=== PATIENT | female | born 1960 | race Caucasian/White ===

== ENCOUNTER → 2019-09-14 09:09 | Outpatient (CLI) | payer OTHER, SELFPAY ==
[2019-09-16 05:38] LABS: COVID19 Sendout Not Detected (Not Detected)
== END ==
PROVIDERS: Family Provider Family Medicine; PCP Student in an Organized Health Care Education/Training Program; Visit Provider Family Medicine
DX: R68.89 Other general symptoms and signs (principal)
CPT/HCPCS: 87635

== ENCOUNTER → 2019-09-17 11:02 | Outpatient (CLI) | payer OTHER, SELFPAY | PROVIDERS: Family Provider Family Medicine; PCP Student in an Organized Health Care Education/Training Program; Visit Provider Nurse Practitioner | DX: S61.011A Laceration without foreign body of right thumb without damage to nail, initial encounter (principal) | CPT/HCPCS: 87070; 87077; 87147; 87186; 87205 ==

== ENCOUNTER → 2020-09-17 13:50 | Outpatient (CLI) | payer OTHER, MEDICAID, SELFPAY ==
[2020-09-17] MEDS: COVID-19 VACC #1, MRNA(MOD) 100 MCG/0.5 ML VIAL IM (13:54)
== END ==
PROVIDERS: Family Provider Family Medicine; PCP Student in an Organized Health Care Education/Training Program; Visit Provider Internal Medicine
DX: Z23 Encounter for immunization (principal)
CPT/HCPCS: 0011A; 91301

== ENCOUNTER → 2020-10-15 13:12 | Outpatient (CLI) | payer OTHER, MEDICAID, SELFPAY ==
[2020-10-15] MEDS: COVID-19 VACC #2, MRNA(MOD) 100 MCG/0.5 ML VIAL IM (13:20)
== END ==
PROVIDERS: Family Provider Family Medicine; PCP Student in an Organized Health Care Education/Training Program; Visit Provider Internal Medicine
DX: Z23 Encounter for immunization (principal)
CPT/HCPCS: 0012A; 91301

== ENCOUNTER 2022-12-22 20:24 | Emergency (ER) | payer OTHER, MEDICAID, SELFPAY ==
[2022-12-22 21:07] VITALS: BP 130/76; PULSE 76; RESP 18; TEMP 37; O2SAT 97; BMI 23.8
== END 2022-12-22 22:39 | disposition left against medical advice (07) ==
PROVIDERS: Emergency Provider Emergency Medicine; Family Provider Family Medicine; PCP Student in an Organized Health Care Education/Training Program
CPT/HCPCS: 99281

== ENCOUNTER → 2024-02-02 10:50 | Outpatient (CLI) | payer OTHER, MEDICAID, SELFPAY | PROVIDERS: Family Provider Family Medicine; PCP Student in an Organized Health Care Education/Training Program; Referring Provider Nurse Practitioner Family; Visit Provider Nurse Practitioner Family | DX: R30.0 Dysuria (principal) | CPT/HCPCS: 87077; 87086; 87210 ==

== ENCOUNTER 2024-03-21 23:50 | Emergency (ER) | payer MEDICARE, OTHER, SELFPAY ==
--- NOTE | 2024-03-21 23:57 | ED.PSYCH ---
HPI - Psych General Chief Complaint: Psychiatric Symptoms Stated Complaint: SI Time Seen by Provider: 03/21/24 23:56 History of Present Illness HPI Narrative: 64-year-old female with previous history of suicide attempts presents by law enforcement for suicide attempt. Patient called the suicide hotline stating that she was going to turn the gas on in her house and kill herself. When EMS arrived the patient seemed to be unconscious on the ground, but after knocking on the door she was able to get up and unlock the door. Law enforcement noted a pervasive odor of gas in the house. Patient refused all attempts by paramedics to assess her. Law enforcement told patient that she would need to come to the ER for evaluation. On arrival patient stated that ?I feel fine?. She stated that she no longer wanted to kill herself. She told me that she has a history of this and has had 6-8 attempts to kill herself in the past. After this point patient began insisting she will keep her clothes on and minimally cooperative with ED staff. Related Data Previous Rx's Medication Instructions Recorded phenazopyridine 200 mg tablet 200 mg PO TID 6 doses #6 tabs 02/02/24 (Pyridium) Allergies Allergy/AdvReac Type Severity Reaction Status Date / Time No Known Drug Allergies Allergy Verified 02/02/24 11:02 Patient History Medical History Coronavirus infection, unspecified History of sunburn Shingles (~07/2018) Mumps Chicken pox Herpes Rectal bleeding Anxiety associated with depression (~1979) Surgical History Anesthesia History of varicose vein ligation (~12/2011) Family History Father Diabetes mellitus Mother Breast cancer Brother No problems noted. Grandfather No problems noted. Grandmother Cancer Social History Smoking Status: Current some day smoker Smoking Status: Current some day smoker tobacco type: cigarettes alcohol intake frequency: a few times a week Alcohol type: beer Substance Use Type: marijuana Exam Initial Vital Signs Initial Vital Signs: Vital Signs Temperature 97.8 F 03/22/24 00:05 Pulse Rate 108 H 03/22/24 00:05 Respiratory Rate 19 03/22/24 00:05 Blood Pressure 124/74 03/22/24 00:05 Pulse Oximetry 96 03/22/24 00:05 Oxygen Delivery Method Room Air 03/22/24 00:05 Const: Awake, alert, no acute distress, uncooperative Cardiac: regular rate, regular rhythm RESP: unlabored, speaking in complete sentences without difficulty Skin: Warm, Dry, intact, no rashes Neuro: AO x3, CN II-XII grossly intact, moves all extremities Psych: denying current SI, however recent attempt made, denying homicidal ideations, hallucinations. Poor insight, poor judgement Course Orders Ordered: ED Orders 03/21/24 23:56 Acetaminophen Stat CBC Auto Diff [Complete Blood Count AUTO DIFF] Stat CMP [Comprehensive Metabolic Panel] Stat Ethanol (ETOH) Stat Salicylate Stat TSH [Thyroid Stimulating Hormone] Stat EKG-12 Lead Stat 03/22/24 00:10 UA Complete [Urinalysis and Microscopic] Stat Urine Drug Screen, Rapid Stat 03/22/24 00:20 COVID19 -Nasal RAPID Stat Discontinued Medications Acetaminophen (Acetaminophen 325 Mg Tablet) 325 mg PO NOW ONE Stop: 03/22/24 02:16 Last Admin: 03/22/24 02:18 Dose: 325 mg Documented By: Vital Signs Vital signs: Vital Signs - 8 hr 03/22/24 00:05 03/22/24 05:10 Temperature 97.8 F Pulse Rate 108 H 97 H Respiratory Rate 19 Blood Pressure 124/74 119/62 Pulse Oximetry 96 99 Oxygen Delivery Method Room Air Room Air MDM - Psych Differential Diagnosis Differential diagnosis: Likely acute psychosis, suicidal ideation and depression Lab Data 03/22/24 00:20 03/22/24 00:20 Labs: Lab Results 03/22/24 03/22/24 03/22/24 Range/Units 00:10 00:10 00:20 WBC 4.3 L (4.5-11.0) X10^3/uL RBC 4.38 (4.0-5.2) X10^6/uL Hgb 13.7 (12.0-16.0) g/dL Hct 40.0 (36-46) % MCV 91.4 (80-100) fL MCH 31.2 (26-34) PG MCHC 34.2 (30-36) % RDW 12.9 (11.6-14.8) % Plt Count 284 (150-400) X10^3/uL Neut % (Auto) 47.6 L (50-75) % Lymph % (Auto) 44.0 H (25-40) % [place] % (Auto) 4.9 (3-14) % Eos % (Auto) 2.5 (2-4) % Baso % (Auto) 1.0 (0-2) % Neut # (Auto) 2100 (3386-3171) /uL Lymph # (Auto) 1900 (2361-0682) /uL [place] # (Auto) 200 (0-900) /uL Eos # (Auto) 100 (0-450) /uL Baso # (Auto) 0 (0-100) /uL Sodium 142 (137-145) mmol/L Potassium 3.7 (3.4-5.1) mmol/L Chloride 105 (98-107) mmol/L Carbon Dioxide 24 (22-32) mmol/L BUN 17 (7-17) mg/dL Creatinine 0.91 (0.52-1.04) mg/dL Estimated GFR > 60 (>60) mL/min BUN/Creatinine Ratio 18.7 (6-22) Glucose 137 H (80-110) mg/dL Calcium 9.8 (8.4-10.2) mg/dL Total Bilirubin 0.7 (0.2-1.3) mg/dL AST 32 (14-36) IU/L ALT 20 (<35) IU/L Alkaline Phosphatase 85 (38-126) U/L Total Protein 8.6 H (6.3-8.2) g/dL Albumin 5.0 (3.5-5.0) g/dL Globulin 3.6 (1.7-4.1) g/dL Albumin/Globulin Ratio 1.4 (1.0-2.8) TSH 1.90 (0.47-4.68) uIU/mL Urine Color Yellow Urine Appearance Clear Urine pH 6.0 Normal (4.5-8.0) Ur Specific [place] <=1.005 (1.000-1.035) Urine Protein Negative (Negative) Urine Glucose (UA) Negative (Negative) g/dL Urine Ketones Negative (NEGATIVE) Urine Occult Blood Negative (Negative) Urine Nitrate Negative (Negative) Urine Bilirubin Negative (NEGATIVE) Urine Urobilinogen 0.2 (0.2) E.U./dL Ur Leukocyte Esterase Trace H (NEGATIVE) Urine RBC 0-1/hpf (0-5/HPF) Urine WBC 1-5/hpf (0-5/HPF) Ur Squamous Epith Cells 1-5 /hpf (0-5/HPF) Urine Bacteria Few (2-10) H (None) Ur Culture Indicated? Cult not indicated Vol Urine Centrifuged 10ml (spun) Salicylates < 1.0 (<20) mg/dL U Opiates 300ng/mL cut Negative (Negative) Ur Oxycodone Screen Negative (Negative) Urine Methadone Screen Negative (Negative) Acetaminophen < 10 (10-30) ug/mL Ur Barbiturates Screen Negative (Negative) U Tricyclic Antidepress Negative (Negative) Ur Phencyclidine Scrn Negative (Negative) Ur Amphetamines Screen Negative (Negative) U Methamphetamines Scrn Negative (Negative) Ur MDMA Scrn (Ecstasy) Negative (Negative) U Benzodiazepines Scrn Negative (Negative) Urine Cocaine Screen Negative (Negative) U Marijuana (THC) Screen Negative (Negative) Urine Specific [place] Normal (Normal) Ethyl Alcohol 151 H ( - 10) mg/dL Ur Creatinine Normal (Normal) SARS-CoV-2 (PCR) Negative (Negative) MDM Narrative Medical decision making narrative: Patient presenting after suicide attempt, turning the gas on in her house in order to kill herself. Law enforcement brought pictures of notes stating I feel ugly and unloved, and I'm going to do it, and a 3rd note stating where people could find her will. Patient reports multiple previous episodes in her lifetime of suicide attempt. Currently denying SI/HI, stating I'm fine. Patient refusing to take her clothing off or surrender her phone per ED psychiatric protocols, stating I am very smart and I know my rights. Patient allowed to keep clothing on and she consented to bloodwork/urinalysis. Laboratory work is reviewed. Alcohol mildly elevated at 151. Carbon monoxide level 0. Patient now stating that she has never seen a doctor despite having a conversation with me immediately after first arrival. Patient stating you don't want to mess with someone who knows their rights. Patient otherwise medically cleared. [facility] dispatch at [phone] - Patient refusing to give up her phone, calling her son multiple stating that we are treating her like a criminal. Requesting her son call a clinical appeals auditor and come pick her up. Also threatening to post on social media and news outlets. Law enforcement called for backup. Law enforcement arrived but patient never gave up her cellphone. Agreed to calm down if given Tylenol. DCR on the way 0445 - DCR Clem evaluated patient. Crisis team will follow patient for the next several days and son will take patient home tonight to watch her for the next 24 hours. [facility] recommends against involuntary commitment at this time. Son is present and confirms that he will take patient home to watch her. Resources sent by [facility]. Patient discharged to the care of her son. Discharge Plan Departure Patient Disposition: Home Clinical Impression: Uncooperative behavior Suicide attempt by inadequate means Qualifiers: Encounter type: initial encounter Qualified Code(s): X83.8XXA - Intentional self-harm by other specified means, initial encounter Alcohol intoxication Qualifiers: Complication of substance-induced condition: uncomplicated Qualified Code(s): F10.920 - Alcohol use, unspecified with intoxication, uncomplicated Instructions: DI for Depression -- Adult Activity Restrictions/Additional Instructions: Use the crisis resources provided to you by the [facility] agent. Avoid alcohol to prevent worsening depression and mental health state Call the crisis line in need of emergency or return to the emergency department Prescriptions: No Action phenazopyridine [Pyridium] 200 mg tablet 200 mg PO TID 0 Days Qty: 6 0RF Referrals: Chaz Thorne MD [Primary Care Provider] - Stand Alone Forms: Patient Portal/API
[2024-03-22 00:05] VITALS: BP 124/74; PULSE 108; RESP 19; TEMP 36.6; O2SAT 96; BMI 23.4
[2024-03-22 00:41] LABS: Add Manual Diff / Slide Review NO; Basophils Absolute Auto 0 /uL (0-100); Eosinophils Absolute Auto 100 /uL (0-450); Eosinophils Percent Auto 2.5 % (2-4); Hemoglobin 13.7 g/dL (12.0-16.0); Lymphocytes Absolute Auto 1900 /uL (1100-4500); Mean Corpuscular HGB Conc 34.2 % (30-36); Mean Corpuscular Hemoglobin 31.2 PG (26-34); Mean Corpuscular Volume 91.4 fL (80-100); Monocytes Absolute Auto 200 /uL (0-900); Monocytes Percent Auto 4.9 % (3-14); Neutrophils Absolute Auto 2100 /uL (1500-7000); Neutrophils Percent Auto 47.6 % (50-75); Platelet Count 284 X10^3/uL (150-400); Red Blood Cell Count 4.38 X10^6/uL (4.0-5.2); Red Cell Distribution Width 12.9 % (11.6-14.8); White Blood Cell Count 4.3 X10^3/uL (4.5-11.0)
[2024-03-22 00:43] LABS: Appearance Urine UA CLEAR; Bilirubin Urine UA NEGATIVE (NEGATIVE); Color Urine UA YELLOW; Glucose Urine UA NEGATIVE (Negative); Ketones Urine UA NEGATIVE (NEGATIVE); Leukocyte Esterase Urine UA TRACE (NEGATIVE); Nitrite Urine UA NEGATIVE (Negative); Occult Blood Urine UA NEGATIVE (Negative); Protein Urine UA NEGATIVE (Negative); Specific Gravity Urine UA <=1.005 (1.000-1.035); Urobilinogen Urine UA 0.2 E.U./dL (0.2)
[2024-03-22 00:45] LABS: Ur Creatinine Normal (Normal); Ur Specific Gravity Normal (Normal); Urine Amphetamines Negative (Negative); Urine Barbiturates Negative (Negative); Urine Benzodiazepines Negative (Negative); Urine Cocaine Negative (Negative); Urine MDMA Negative (Negative); Urine Methadone Negative (Negative); Urine Methamphetamines Negative (Negative); Urine Opiates Negative (Negative); Urine Oxycodone Negative (Negative); Urine Phencyclidine Negative (Negative); Urine THC Negative (Negative); Urine Tricyclic Antidepressant Negative (Negative); Urine pH Normal (Normal)
[2024-03-22 00:50] LABS: Bacteria Urine Few (2-10); Culture Indicated Urine Cult Not Indicated; RBC Urine 0-1/HPF (0-5/HPF); Squamous Epithelial Cell Urine 1-5 /HPF (0-5/HPF); Urine Volume 10mL (spun); WBC Urine 1-5/HPF (0-5/HPF)
[2024-03-22 00:57] LABS: Acetaminophen < 10 ug/mL (10-30); Alanine Aminotransferase 20 IU/L (<35); Albumin Globulin Ratio 1.4 (1.0-2.8); Alkaline Phosphatase 85 U/L (38-126); Aspartate Aminotransferase 32 IU/L (14-36); BUN Creatinine Ratio 18.7 (6-22); Bilirubin Total 0.7 mg/dL (0.2-1.3); Blood Urea Nitrogen 17 mg/dL (7-17); Calcium 9.8 mg/dL (8.4-10.2); Carbon Dioxide 24 mmol/L (22-32); Chloride 105 mmol/L (98-107); Estimated Glomerular Filt Rate > 60 mL/min (>60); Ethanol (ETOH) 151 mg/dL; Globulin 3.6 g/dL (1.7-4.1); Glucose 137 mg/dL (80-110); HEMOLYSIS < 15 (0-50); Potassium 3.7 mmol/L (3.4-5.1); Salicylate < 1.0 mg/dL (<20); Sodium 142 mmol/L (137-145); Total Protein 8.6 g/dL (6.3-8.2)
[2024-03-22 00:58] LABS: COVID19 -Nasal RAPID Negative (Negative)
--- NOTE | 2024-03-22 00:58 | PC.NURSE ---
Addendum entered by Francy Souza CNA 03/22/24 04:32: PRODUCT SAFETY ADMINISTRATOR note: Patient talking to [place]. Addendum entered by Francy Souza CNA 03/22/24 02:25: DILCIA note: Police officers in room attempting to get patient's phone from her. Two officers in room. Original Note: DILCIA note: Patient is in her bed demanding to talk to a doctor and to be evaluated. When I told patient that the doctor did come in for an evaluation patient repeatedly interrupted me and stated that I was wrong that was not an evaluation. I'm a very smart person. I have a masters degree in education and multiple degrees. I know what an evaluation looks like. You're a nurse you should know better. When I explained I'm not a nurse, that I'm an tire technician, patient dismissed me and said you're an idiot. I said vladimir? I didn't hear you. Patient shooed me away and rolled her eyes.
--- NOTE | 2024-03-22 01:02 | PC.NURSE ---
upon an arrival to emergency department pt was explained the process about changing attire and the process of the emergency department. Pt refused changing into to clothing and started yelling at staff. this rn into room and cleared other staff out. calmed pt down, able to get urine and blood sample, ensured pt did have any weapons on person and able to have pt remove jewelry. placed all other belongings into patient belong bag and locked into cabinet. Pt asking to keep phone, pt informed if it she escalates it will need to be put with her other belongs and patient agreed.
--- NOTE | 2024-03-22 01:31 | PC.NURSE ---
Called [facility] to dispatch dcr.
--- NOTE | 2024-03-22 02:00 | PC.NURSE ---
Pt labs back and medically cleared, Pt arguing with sitter and becoming increasingly loud and demand, this Rn chose to move pt to room 13 (isolation room). when went into room to inform patient of moving rooms. pt speaking over this nurse, stating it has been an 45 minutes since asked for a nurse or a doctor, another rn had been in room multiple times in the time. pt reports has been recording everything on her phone, eventually able to get patient to move to rm 13 and was informed due to her escalation the phone was going to have to be removed. pt started yelling at staff, stating I'm going to call my paper bag machine operator, I'm going to post this all over [employer], I'm going to call [employer] Pt quickly pacing in room 13 while yelling, removed bed for safety at this time and [employer] called to assist. [employer] in room for apx 10 min able to calm pt down, pt agreed to stay calm if she was able to get the bed back, Pt agreed at this time. Apd informed patient continued to stay agreeable she could also keep her phone. Pt informed as well of [facility] ETA and agreable at this time.
--- NOTE | 2024-03-22 02:01 | PC.NURSE ---
called dispatch around 0145 to request [employer] to be present for pt's escalating behavior while moving this patient to room 13
[2024-03-22] MEDS: ACETAMINOPHEN 325 MG TABLET PO (02:18)
--- NOTE | 2024-03-22 02:19 | PC.NURSE ---
Pt reports having a headache. MD notified. New orders received.
[2024-03-22 05:10] VITALS: BP 119/62; PULSE 97; O2SAT 99
== END 2024-03-22 05:25 | disposition home or self-care (01) ==
PROVIDERS: Emergency Provider Emergency Medicine; Family Provider Family Medicine; PCP Student in an Organized Health Care Education/Training Program
DX: F10.129 Alcohol abuse with intoxication, unspecified (principal); R45.851 Suicidal ideations; Y90.6 Blood alcohol level of 120-199 mg/100 ml; X83.8XXA Intentional self-harm by other specified means, initial encounter
CPT/HCPCS: 36415; 80053; 80305; 80320; 80329; 81001; 84443; 85025; 87635; 99284; G0480